=== PATIENT | male | born 1935 | race Hispanic/Latino ===

== ENCOUNTER 2017-02-26 09:22 | Outpatient (CLI) | payer MEDICARE ==
--- NOTE | 2017-02-27 15:26 | PET Report ---
WHOLE BODY PET/CT:02/26/17 CLINICAL: Melanoma staging. RADIOPHARMACEUTICAL: 15.1mCi F18-FDG. COMPARISON: None. TECHNIQUE- Following intravenous injection of F-18 FDG and an approximately 60 minute uptake period, CT and PET images from the top of the cranium through the feet were acquired with the patient in the fasted state. No contrast was administered. The CT protocol used for this PET CT study is designed for attenuation correction and anatomic localization of PET abnormalities. This beverage manager CT is not desired to produce and cannot replace, [id number] diagnostic CT scans with specific imaging protocols for different body parts and indications. Plasma glucose at the time of this test: 163g/dl. The standardized uptake values (SUV) are normalized to patient body weight and indicate the highest activity concentration (SUV max) in a given disease site. FINDINGS: Brain--Physiologic FDG uptake in the visualized regions of the brain. Neck--Focal FDG uptake at the right tracheal cartilage with SUV 3.9. There is erosion of the cartilage without a distinct mass. The hypopharynx and larynx are normal. Chest--Physiologic FDG uptake in mediastinal blood pool and myocardium. Lungs--No abnormal uptake. No pulmonary nodule or mass. Pleura/pericardium--No abnormal uptake. Large bilateral pleural effusions, left larger than right. Thoracic nodes--No abnormal uptake. Hepatobiliary--No abnormal uptake. Liver background SUV mean, as a reference for comparing FDG studies, is 4.8. Spleen--No abnormal uptake. Pancreas--No abnormal uptake. Adrenal Glands--No abnormal uptake. Kidneys/Ureters/Bladder--No abnormal uptake. Small kidneys. Abdominopelvic Nodes--No abnormal uptake. Bowel/Peritoneum/Mesentery--No abnormal uptake. Pelvic organs--No abnormal uptake. Bones/Soft Tissues--No abnormal uptake. Extremities--Status post bilateral BKA. Mild benign FDG uptake in the stumps.No other abnormal uptake. IMPRESSION: 1. Negative study except for erosion an abnormal FDG uptake in the right thyroid cartilage. This is of uncertain etiology since there is no distinct mass associated with it. Recommend CT neck without and with contrast. 2. Large bilateral pleural effusions, left larger than right.
== END 2017-02-26 09:23 | disposition home or self-care (01) ==
LOC: PET 09:22
PROVIDERS: ATTEND Internal Medicine Hematology & Oncology
DX: C43.9 Malignant melanoma of skin, unspecified (principal); J90 Pleural effusion, not elsewhere classified; I11.0 Hypertensive heart disease with heart failure; I50.9 Heart failure, unspecified; E78.00 Pure hypercholesterolemia, unspecified; E03.9 Hypothyroidism, unspecified; I48.91 Unspecified atrial fibrillation; Z96.653 Presence of artificial knee joint, bilateral; Z87.891 Personal history of nicotine dependence
CPT/HCPCS: 78815; 82962; A9552